=== PATIENT | male | born 1995 | race Two or more races ===

== ENCOUNTER 2016-12-24 06:08 | Observation (INO) | payer OTHER ==
[~2016-12-24] VITALS: Ht 190.5 cm; Wt 99.3 kg
[~2016-12-24 06:08] MED LIST: BENTYL20 MG PO; MOBIC7.5 MG PO; NAPROSYN500 MG PO; NO HOME MEDS; PEPCID20 MG PO; ZOFRAN ODT4 MG PO; ZOFRAN8 MG PO
[2016-12-24 06:47] LABS: CHLORIDE 101 mEq/L (99-109); SODIUM 143 mEq/L (136-147)
[2016-12-24 06:49] LABS: GLUCOSE 128 mg/dL (70-99)
[2016-12-24 06:50] LABS: ANION GAP 14 MEQ/L (2-14)
[2016-12-24 06:51] LABS: TOTAL BILIRUBIN 0.5 mg/dL (0.0-1.0)
[2016-12-24 06:53] LABS: ALKALINE PHOSPHATASE 68 IU/L (3-129); GFR ESTIMATE (CALCULATED) > 59 mL/min/
[2016-12-24 06:54] LABS: UREA NITROGEN (BUN) 6 mg/dL (9-23)
[2016-12-24 06:56] LABS: LIPASE 15 U/L (1.0-51.0)
[2016-12-24] MEDS ORDERED: ZOFRAN ODT4 MG PO (11:10)
[2016-12-24 13:35] LABS: ADD MIUA? NO; BILIRUBIN NEGATIVE; BLOOD NEGATIVE; COLOR STRAW ((YELLOW)); GLUCOSE (STRIP) NEGATIVE; KETONES NEGATIVE; LEUKOCYTES NEGATIVE; NITRITE NEGATIVE; PROTEIN (STRIP) NEGATIVE; UCUL ADDED? NO; UROBILINOGEN 0.2 MG/DL (0.2-1.0)
[2016-12-24 16:08] VITALS: BP 148/80
[2016-12-24 20:11] VITALS: BP 137/70
[2016-12-24 23:54] VITALS: BP 134/60
[2016-12-25 03:50] VITALS: BP 141/67
[2016-12-25 07:32] LABS: ANION GAP 12 MEQ/L (2-14); CHLORIDE 99 MEQ/L (99-109); GFR ESTIMATE (CALCULATED) > 59 mL/min/; POTASSIUM 3.9 MEQ/L (3.7-5.4); SAMPLE HEMOLYSIS CHECK 0; SAMPLE ICTERIC CHECK 0; SAMPLE LIPEMIA CHECK 0; SODIUM 138 MEQ/L (136-147); UREA NITROGEN (BUN) 11 mg/dL (9-23)
[2016-12-25 07:34] LABS: GLUCOSE 90 mg/dL (70-99)
[2016-12-25 07:35] LABS: HEMATOCRIT 46.4 % (38.0-50.0); MCH 29.4 PG (29.0-34.0); MCHC 33.6 G/DL (30.0-36.0); MCV 87.4 FL (86-99); MEAN PLAT.VOLUME 11.3 uM^3 (9.0-12.4); PLATELET COUNT 281 K/uL (156-360); RBC DIS.WIDTH-CV 12.1 % (11.8-14.6); RBC DIS.WIDTH-SD 38.8 % (39-53); RED BLOOD COUNT 5.31 M/uL (4.00-5.50)
[2016-12-25 07:42] LABS: WHITE BLOOD COUNT 15.1 K/uL (4.1-10.2)
[2016-12-25 08:37] VITALS: BP 158/85
[2016-12-25] MEDS ORDERED: ZOFRAN4 MG PO (12:19)
== END 2016-12-25 12:32 | disposition home or self-care (01) ==
LOC: EME 06:08 → EDOF 13:10 → 5WEST 13:10 → EDOF 13:10 → 5WEST 15:56
PROVIDERS: Internal Medicine
DX: R11.2 Nausea with vomiting, unspecified (principal); R10.9 Unspecified abdominal pain; F17.200 Nicotine dependence, unspecified, uncomplicated
CPT/HCPCS: 74177; 80048; 80053; 81003; 83690; 85025; 85027; 87040; 99281; 99285; G0378; J0780; J1200; J2060; J2405; J2765; J7030; S0028

== ENCOUNTER 2017-03-11 19:36 | Emergency (ER) | payer OTHER ==
[~2017-03-11] VITALS: Ht 190.5 cm; Wt 92.7 kg
[~2017-03-11 19:36] MED LIST changes: +ZOFRAN4 MG PO
[2017-03-11 20:37] LABS: HEMATOCRIT 52.2 % (38.0-50.0); MCH 29.1 PG (29.0-34.0); MCHC 33.5 G/DL (30.0-36.0); MCV 86.9 FL (86-99); RBC DIS.WIDTH-CV 11.6 % (11.8-14.6); RBC DIS.WIDTH-SD 37.2 % (39-53); RED BLOOD COUNT 6.01 M/uL (4.00-5.50); WHITE BLOOD COUNT 9.5 K/uL (4.1-10.2)
[2017-03-11 20:50] LABS: CHLORIDE 95 mEq/L (99-109); POTASSIUM 4.3 mEq/L (3.7-5.4); SODIUM 137 mEq/L (136-147)
[2017-03-11 20:52] LABS: GLUCOSE 119 mg/dL (70-99)
[2017-03-11 20:54] LABS: ANION GAP 10 MEQ/L (2-14); TOTAL BILIRUBIN 1.3 mg/dL (0.0-1.0)
[2017-03-11 20:56] LABS: ALKALINE PHOSPHATASE 61 IU/L (3-129); GFR ESTIMATE (CALCULATED) 58 mL/min/
[2017-03-11 20:57] LABS: UREA NITROGEN (BUN) 13 mg/dL (9-23)
[2017-03-11 20:59] LABS: LIPASE 100 U/L (1.0-51.0)
[2017-03-11 21:15] LABS: MEAN PLAT.VOLUME 10.7 uM^3 (9.0-12.4); PLATELET COUNT 305 K/uL (156-360)
[2017-03-11] MEDS ORDERED: ZOFRAN4 MG PO (22:32)
[2017-03-11 22:57] VITALS: BP 168/100
== END 2017-03-11 23:02 | disposition home or self-care (01) ==
LOC: EME 19:36
DX: A08.4 Viral intestinal infection, unspecified (principal); F17.200 Nicotine dependence, unspecified, uncomplicated
CPT/HCPCS: 74176; 80053; 81003; 83690; 85027; 99281; 99284; J2405; J7030

== ENCOUNTER 2017-09-08 16:38 | Emergency (ER) | payer OTHER ==
[~2017-09-08] VITALS: Ht 193 cm; Wt 95.3 kg
[2017-09-08 17:12] LABS: HEMATOCRIT 52.8 % (38.0-50.0); MCH 30.1 PG (29.0-34.0); MCHC 34.7 G/DL (30.0-36.0); MCV 86.8 FL (86-99); MEAN PLAT.VOLUME 10.5 uM^3 (9.0-12.4); PLATELET COUNT 409 K/uL (156-360); RBC DIS.WIDTH-CV 12.1 % (11.8-14.6); RBC DIS.WIDTH-SD 38.2 % (39-53); RED BLOOD COUNT 6.08 M/uL (4.00-5.50); WHITE BLOOD COUNT 16.3 K/uL (4.1-10.2)
[2017-09-08 17:21] LABS: CHLORIDE 105 mEq/L (99-109); POTASSIUM 4.5 mEq/L (3.7-5.4); SODIUM 142 mEq/L (136-147)
[2017-09-08 17:23] LABS: GLUCOSE 97 mg/dL (70-99)
[2017-09-08 17:24] LABS: ANION GAP 8 MEQ/L (2-14)
[2017-09-08 17:26] LABS: GFR ESTIMATE (CALCULATED) > 59 mL/min/ (58.99-99999)
[2017-09-08 17:27] LABS: UREA NITROGEN (BUN) 7 mg/dL (9-23)
[2017-09-08 17:32] LABS: TROP-I INTERPRETATION NEGATIVE; TROPONIN-I < 0.01 ng/mL (0.0-0.30)
[2017-09-08 18:19] LABS: LIPASE 10 U/L (1.0-51.0)
[2017-09-08 21:03] VITALS: BP 137/80
== END 2017-09-08 21:03 | disposition home or self-care (01) ==
LOC: EME 16:38
DX: J06.9 Acute upper respiratory infection, unspecified (principal); R07.9 Chest pain, unspecified; R10.13 Epigastric pain; R11.2 Nausea with vomiting, unspecified; Z91.14 Patient's other noncompliance with medication regimen; F17.200 Nicotine dependence, unspecified, uncomplicated
CPT/HCPCS: 71020; 80048; 81003; 83690; 84484; 85027; 93005; 99281; 99285; J2405; J7030